=== PATIENT | male | born 1990 | race Caucasian/White ===

== ENCOUNTER 2016-09-18 14:18 | Emergency (ER) | payer SELFPAY ==
[~2016-09-18] VITALS: Ht 167.6 cm; Wt 69.0 kg
[~2016-09-18 14:18] MED LIST: ALBUTEROL2.5 MG/3 M IN; AMOXICILLIN500 MG OR; AUGMENTIN875TAB PO; BACTRIM DS1 TAB PO; CORTISPORIN OTI10 ML AD; DENIES CURRENT MEDS; MEDDOSEPAK PO; PROAIR HFA IN
[2016-09-18] MEDS ORDERED: MOTRIN800 MG PO (15:24)
[2016-09-18] MEDS ORDERED: TRAMADOL HYDROC50 MG PO (15:48)
[2016-09-18 16:16] VITALS: BP 140/82
== END 2016-09-18 16:30 | disposition home or self-care (01) | DRG 605 ==
LOC: ED 14:18
PROC: 2W39X1Z Immobilization of Left Upper Extremity using Splint (ICD-10-PCS; principal; 2016-09-18)
DX: S50.02XA Contusion of left elbow, initial encounter (principal); F41.9 Anxiety disorder, unspecified; S53.402A Unspecified sprain of left elbow, initial encounter; J45.909 Unspecified asthma, uncomplicated; F17.210 Nicotine dependence, cigarettes, uncomplicated; W17.89XA Other fall from one level to another, initial encounter; Y93.51 Activity, roller skating (inline) and skateboarding

== ENCOUNTER 2017-10-23 09:54 | Emergency (ER) | payer OTHER ==
[~2017-10-23] VITALS: Ht 167.6 cm; Wt 90.0 kg
[~2017-10-23 09:54] MED LIST changes: +MOTRIN800 MG PO; +TRAMADOL HYDROC50 MG PO
[2017-10-23] MEDS ORDERED: TORADOL PO (11:21)
[2017-10-23] MEDS ORDERED: KEFLEX500 M1 PO (11:21)
[2017-10-23 11:35] VITALS: BP 146/92
== END 2017-10-23 11:52 | disposition home or self-care (01) | DRG 605 ==
LOC: ED 09:54
DX: S61.213A Laceration without foreign body of left middle finger without damage to nail, initial encounter (principal); W23.0XXA Caught, crushed, jammed, or pinched between moving objects, initial encounter; Y93.89 Activity, other specified; Y92.79 Other farm location as the place of occurrence of the external cause; Y99.0 Civilian activity done for income or pay